=== PATIENT | male | born 1955 | race Caucasian/White ===

== ENCOUNTER 2023-11-13 06:17 | Emergency (ER) | payer MEDICARE, BC, SELFPAY ==
--- NOTE | ~2023-11-13 | CT_ITS ---
Non-contrast CT scan of the Abdomen and Pelvis Clinical indication: Flank pain Technique: 2.5 mm axial scans were obtained through the abdomen and pelvis without intravenous or or al contrast. Dose reduction technique was used on this scan by utilizing automated exposure control a nd iterative reconstruction technique. The dose-length product (DLP) was 902.12 mGy-cm. Findings: Images through the lung bases reveal no abnormalities. 4 mm left UVJ stone is present, with mild left hydroureteronephrosis. There is mild asymmetric left p erinephric stranding. Additional small bilateral nonobstructing renal stones are present. No right ur eteral stone or hydronephrosis. The liver, spleen, pancreas, gallbladder, and adrenals appear normal. There is no aortic aneurysm. There is no evidence of bowel obstruction. Images through the pelvis were performed. There is no evidence of ascites or lymphadenopathy. Urinary bladder otherwise unremarkable. No pelvic mass seen. Impression: 4 mm left UVJ stone with mild left hydroureteronephrosis. Additional bilateral nonobstructing renal stones. Reviewed, dictated and finalized at [facility]. SYSTEM ADMINISTRATOR Impression: 4 mm left UVJ stone with mild left hydroureteronephrosis. Additional bilateral nonobstructing renal stones.
[2023-11-13 06:25] VITALS: BP 168/100; PULSE 80; RESP 16; TEMP 37.1; O2SAT 99
[2023-11-13 06:38] LABS: Basophils Absolute Auto 0.1 K/mm3 (0.0-0.1); Eosinophils Absolute Auto 0.3 K/mm3 (0-0.3); Hemoglobin 15.3 g/dL (14.0-18.0); Immature Granulocyte Absolute 0.02 K/mm3 (0.00-0.031); Immature Granulocyte Percent A 0.3 % (0-0.5); Lymphocytes Absolute Auto 2.17 K/mm3 (0.9-3.2); Lymphocytes Percent Auto 35.9 % (18.3-44.2); Mean Corpuscular Hemoglobin 29.8 pg (26-34); Mean Corpuscular Volume 87.7 fl (80-100); Mean Platelet Volume 11.3 fl (7.4-10.4); Monocytes Absolute Auto 0.7 K/mm3 (0.1-0.6); Monocytes Percent Auto 11.2 % (2.6-8.5); Neutrophils Absolute Auto 2.8 K/mm3 (1.3-6.7); Neutrophils Percent Auto 46.6 % (45.5-73.1); Platelet Count Result 147 k/mm3 (150-375); Red Blood Count 5.13 M/mm3 (4.6-6.20); Red Cell Distribution Width 12.5 % (11.5-14.5); White Blood Count 6.1 K/mm3 (4.5-10.0)
[2023-11-13 06:50] LABS: Alanine Aminotransferase 32 U/L (6-50); Albumin Level 4.4 g/dL (3.5-5.1); Alkaline Phosphatase 66 U/L (38-126); Anion Gap 4 mmol/L (8-16); Aspartate Amino Transferase 33 U/L (17-59); Bilirubin,Total 0.7 mg/dL (0.2-1.3); Blood Urea Nitrogen 15 mg/dL (9-20); Calcium 9.1 mg/dL (8.4-10.2); Carbon Dioxide 29 mmol/L (22-30); Chloride 104 mmol/L (98-107); Estimated CRCL calculation 67 ml/min; Estimated Glomerular Filt Rate > 60; Glucose 124 mg/dL (65-110); Potassium 3.7 mmol/L (3.4-5.0); Sodium 137 mmol/L (137-145)
[2023-11-13] MEDS: KETOROLAC 15 MG/ML VIAL (*BKC) IV PUSH (06:51)
--- NOTE | 2023-11-13 07:45 | ED.GENADULT ---
HPI - General Adult General Chief complaint: Urogenital-Male Stated complaint: kidney stones Time Seen by Provider: 11/13/23 07:01 History of Present Illness HPI narrative: Patient is a 67-year-old gentleman who presents emergency department with chief complaint of left flank pain. Patient reports that on Thursday started having some pain pain went away for a couple of days and then came back patient states pain then eased up and then this evening/morning pain came back patient states he feels as though he needs to urinate but has not been able to fully urinate. Patient reports he has had no fever reports he has had several episodes of kidney stones before in the past 1 of which required stent in the other were required lithotripsy. Related Data Allergies Allergy/AdvReac Type Severity Reaction Status Date / Time No Known Allergies Allergy Unknown Verified 11/13/23 06:18 Review of Systems Review of Systems: A 10 system review of systems was completed on the patient and is negative except for what is stated in the HPI. Nursing and ancillary documentation was reviewed. Exam Narrative: GENERAL: Well-appearing, well-nourished, and in no acute distress. HEAD: Normocephalic, atraumatic. EYES: PERRLA and EOMI. ENT: Nares clear, no rhinorrhea or epistaxis. Mucous membranes moist. NECK: Supple. CHEST: Clear to auscultation. No respiratory distress. HEART: Regular rate and rhythm. No murmur heard. Normal peripheral pulses. ABDOMEN: Soft, nontender, nondistended, normal active bowel sounds. EXTREMITIES: Normal range of motion. No edema. SKIN: Warm, dry, no rash. NEURO: No focal deficits. Alert and oriented x3. PSYCH: Normal mood and affect. Course Vital Signs Vital signs: Vital Signs Temperature 37.1 C 11/13/23 06:25 Pulse Rate 80 11/13/23 06:25 Respiratory Rate 16 11/13/23 06:25 Blood Pressure 168/100 H 11/13/23 06:25 Pulse Oximetry 99 11/13/23 06:25 Oxygen Delivery Room Air 11/13/23 06:25 Temperature 37.1 C 11/13/23 06:25 Pulse Rate 68 11/13/23 07:50 Respiratory Rate 15 11/13/23 07:50 Blood Pressure 151/87 H 11/13/23 07:50 Pulse Oximetry 97 11/13/23 07:50 Oxygen Delivery Room Air 11/13/23 06:25 Medical Decision Making [facility] Narrative Medical decision making narrative: Differential diagnosis includes ureterolithiasis, UTI, pyelonephritis, colitis, diverticulitis, appendicitis Laboratory studies were obtained on the patient white count 6.1 electrolytes are within normal limits urinalysis showed no evidence UTI CT scan of the abdomen pelvis showed a 4 mm stone at the UVJ Patient's pain was controlled in the emergency department patient discharged home with prescription for Adah Zofran and Flomax. The patient will be referred to Urology Vital Signs Vital Signs: Vital Signs Temperature 37.1 C 11/13/23 06:25 Pulse Rate 80 11/13/23 06:25 Respiratory Rate 16 11/13/23 06:25 Blood Pressure 168/100 H 11/13/23 06:25 Pulse Oximetry 99 11/13/23 06:25 Oxygen Delivery Room Air 11/13/23 06:25 Temperature 37.1 C 11/13/23 06:25 Pulse Rate 68 11/13/23 07:50 Respiratory Rate 15 11/13/23 07:50 Blood Pressure 151/87 H 11/13/23 07:50 Pulse Oximetry 97 11/13/23 07:50 Oxygen Delivery Room Air 11/13/23 06:25 Lab Data 11/13/23 06:31 11/13/23 06:31 Labs: Lab Results 11/13/23 11/13/23 Range/Units 06:31 07:47 WBC 6.1 (4.5-10.0) K/mm3 RBC 5.13 (4.6-6.20) M/mm3 Hgb 15.3 (14.0-18.0) g/dL Hct 45.0 (42.0-52.0) % MCV 87.7 (80-100) fl MCH 29.8 (26-34) pg MCHC 34.0 (32-36) g/dl RDW 12.5 (11.5-14.5) % Plt Count 147 L (150-375) k/mm3 MPV 11.3 H (7.4-10.4) fl Immature Gran % (Auto) 0.3 (0-0.5) % Neut % (Auto) 46.6 (45.5-73.1) % Lymph % (Auto) 35.9 (18.3-44.2) % [place] % (Auto) 11.2 H (2.6-8.5) % Eos % (Auto) 5.0 H (0-4.4) % Baso % (Auto) 1.0 (
[2023-11-13 07:50] VITALS: BP 151/87; PULSE 68; RESP 15; O2SAT 97
[2023-11-13] MEDS: ONDANSETRON INJ 4 MG/2 ML VIAL IV PUSH (07:59)
[2023-11-13] MEDS: MORPHINE SULFATE (*CRX) 4 MG/ML INJ IV PUSH (08:00)
[2023-11-13 08:05] LABS: Appearance Urine Clear (Clear); Bacteria Urine None Seen /hpf; Bilirubin Urine Negative (Negative); Blood Urine Negative (Negative); Color Urine Yellow (Yellow); Glucose Urine UA Negative (Negative); Ketones Urine Negative (Negative); Leukocyte Esterase Ur Negative LEU/UL (Negative); Nitrate Urine Negative (Negative); Non Pathogenic Casts 0-2; Protein Urine 1+ mg/dL (Negative); RBC Urine 0-2 /hpf (0-2); Squamous Epithelial Cell Urine None seen /hpf (Few); WBC Urine 0-5 /hpf; pH Urine 6.5 (5.0-9.0)
[2023-11-13 08:16] LABS: Add Urine Microscopic? YES
[2023-11-13] MEDS: HYDROmorphone HCL INJ (*CRX) 1 MG/ML SYR IV PUSH (08:27)
[2023-11-13] MEDS: TAMSULOSIN HCL 0.4 MG CAPSULE PO (09:03)
[2023-11-13 09:04] VITALS: BP 153/89; PULSE 83; RESP 20; TEMP 36.6; O2SAT 98
== END 2023-11-13 09:17 | disposition home or self-care (01) ==
PROVIDERS: Emergency Medicine; Emergency Provider Emergency Medicine; PCP Internal Medicine
DX: N13.2 Hydronephrosis with renal and ureteral calculous obstruction (principal)
CPT/HCPCS: 36415; 74176; 80053; 81001; 85025; 96374; 96375; 99284; A9270; J1170; J1885; J2270; J2405